=== PATIENT | female | born 1990 | race Caucasian/White ===

== ENCOUNTER 2024-11-21 16:13 | Inpatient (IN) | payer SELFPAY ==
[2024-11-21] VITALS (9 sets, daily range): BP systolic 128–150; BP diastolic 72–118; PULSE 107–118; RESP 19–26; TEMP 36.9; O2SAT 93–96
--- NOTE | ~2024-11-21 | CT_ITS ---
EXAMINATION: CTA chest PE protocol DATE: 11/21/2024 21:20 CDT INDICATION: Shortness of breath, recent asthma diagnosis without improvement from inhalers. Pulmonary embolus suspected clinically TECHNIQUE: Computed tomographic angiography (CTA) of the chest was performed with 100 mL Omnipaque-35 0 intravenous contrast. The dose-length product was 974.78 mGy-cm. Maximum intensity projection 3D-re constructions of the aorta and other arteries were constructed by the technologist on a separate work station. COMPARISON: 10/18/2012 FINDINGS/OBSERVATIONS: PULMONARY ARTERIES: No filling defect is identified within the main or proximal pulmonary artery. The main pulmonary artery is not enlarged. THORACIC AORTA: No aneurysmal dilatation or dissection is present. The great vessels are intact LUNGS: Redemonstration of bulky calcifications within the anterior segment of the left upper lobe, un changed from 2013 likely representing prior granulomatous disease. Cylindrical bronchiectasis is detected bilaterally, more than one would expect in a patient of this a ge. Evaluation for the presence or absence of pulmonary nodules is limited secondary to respiratory m otion artifact. 4 mm intraparenchymal lymph node is identified, also unchanged from 2013 examination. MEDIASTINUM: No morphologically suspicious or pathologically enlarged lymph nodes are identified with in the mediastinum or bilateral axilla. BONES OF THE CHEST: No acute fracture. No significant degenerative disease. No lytic or blastic lesions. HEART: The heart is of normal size, without pericardial effusion. IMPRESSION: No pulmonary embolus. No thoracic aortic dissection. Findings suggesting prior granulomatous disease. Cylindrical bronchiectasis. Otherwise stable CTA of the chest dating back to 10/18/2022. Reviewed, dictated and finalized at location A.
--- NOTE | ~2024-11-21 | XR_ITS ---
CHEST RADIOGRAPH, PA AND LATERAL CLINICAL HISTORY: sob . COMPARISON: None available TECHNIQUE: PA and lateral views of the chest. FINDINGS The cardiomediastinal silhouette is unremarkable. The lungs are clear. Visualized osseous structures and soft tissues are unremarkable. IMPRESSION: No focal infiltrate or effusion. Reviewed, dictated and finalized at location A.
--- OUTSIDE RECORDS SUMMARY | 2024-11-21 16:17 | XMS_ITS | Clinical Summary ---
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
--- OUTSIDE RECORDS SUMMARY | 2024-11-21 16:17 | XMS_ITS | CONTINUITY OF CARE DOCUMENT ---
Author Name mahsa bragg Address Unknown Organization [facility] Address [address] [place] [address] Phone [phone] Care Team Providers Care Claim Taker Name Role Phone René Bolton MD Unavailable René Bolton MD Unavailable [phone] INSURANCE PROVIDERS Payer name Policy type / Coverage type [place] red republican ID [id number] PAY
--- OUTSIDE RECORDS SUMMARY | 2024-11-21 16:17 | XMS_ITS | Clinical Summary ---
Author Organization [facility] Address [address] [place] [address] Care Team Providers Care Information Assistant Name Role Phone Unavailable Primary Care Provider Unavailabl e Source Comments [facility],non-owned Affiliates and Associated Physician Practices is amultiple site organization consisting of ambulatory clinics and hospital sitesin [place], [place], [place] and [place]. This disclosure is being madepursuant to the Care Everywhere program and may not contain all information available regarding this patient. Last updated 18.[facility] Allergies No known active allergies Medications * Be aware that medications may not be up to date on this document. Alwaysverify current medications with the patient. 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 03/27/2018 Overview (06/12/2018): Incomplete anatomical screen for twin B Obesity affecting , antepartum 03/27/20 18 Family History Medical History Relation Name Comments Cancer - Breast Maternal Grandmother Cancer - Breast Mother Katharina Relation Name Status Comments Brother Alive Father Tae Alive Maternal Grandfather Maternal Grandmother Alive Mother Katharina (Age 35) Paternal Grandfather Alive Paternal Grandmother Alive Social History Tobacco Use Types Packs/Day Years Used Date Smoking Tobacco: Never Smokeless Tobacco: Never Alcohol Use Standard Drinks/Week Comments No 0 (1 standard drink = 0.6 oz pur e alcohol) Sex and Gender Information Value Date Recorded Sex Assigned at Not on file Gender Identity Not on file Sexual Orientation Not on file Last Filed Vital Signs Vital Sign Reading Time Taken Comments Blood Pressure 113/67 05/02/2018 4:02 PM CDT Pulse 87 05/02/2018 4:02 PM CDT Temperature - - Respiratory Rate - - Oxygen Saturation - - Inhaled Oxygen Concentration - - Weight 116.1 kg (256 lb) 05/02/2018 4:02 PM CDT Height 139.7 cm (4' 7 ) 05/02/2018 4:02 PM CDT Body Mass Index 59.5 05/02/2018 4:02 PM CDT Plan of Treatment Health Maintenance Due Date Last Done Comments PAP SMEAR 1990 HIV SCREENING 2006 HEPATITIS C SCREENING 01/02/2009 DTAP/TDAP/TD VACCINES (1 - Tdap) 2010 HEPATITIS B VACCINE (1 of 3 - 19+ 3-dose series) 2010 COVID-19 VACCINE (1 - 2023-2 5 season) 2024 INFLUENZA VACCINE (#1) 2024 DEPRESSION SCREENING 09/04/2024 ZOSTER VACCINE (1 of 2) 2041 HIB VACCINE Aged Out No longer eligi ble based on patient's age to complete this topic HPV VACCINE Aged Out No longer eligi ble based on patient's age to complete this topic MENINGOCOCCAL (Group B) VACC INE SHARED DECISION-MAKING Aged Out No longer eligibl e based on patient's age to complete this topic MENINGOCOCCAL GROUPS A/C/Y/W VACCINE Aged Out No longer eligible b ased on patient's age to complete this topic PNEUMOCOCCAL VACCINE Aged Out No long er eligible based on patient's age to complete this topic Fabiana Juárez Personal/Family Self [id number] [address]
--- NOTE | 2024-11-21 16:39 | ED_ITS ---
HPI - SOB/Dyspnea General Chief Complaint: Asthma <Eden Brooke PA-C - Last Filed: 11/21/24 16:47> Stated Complaint: Shortness of breath <DARIUS Riley Last Filed: 11/21/24 16:47> Time Seen by Provider: 11/21/24 16:39 <DARIUS Riley Last Filed: 11/21/24 16:47> Focused HPI: Patient is a 34 y/o female who presents to the ED with c/o SOB. Patient reports she has been sick for the past 2 months with cough, congestion, SOB. Reports having worsening SOB over the past few days, worse with exertion. States she was diagnosed with asthma in October and Rx'd an inhaler. Has been using this and nebulizer Tx w/o improvement. Has also been on several rounds of steroids and antibiotics with temporary improvement. Reports intermittent chest tightness, dizziness. Denies fevers. GENERAL: Well-appearing, morbidly obese with BMI of 41.2, and in no acute distress. HEAD: Normocephalic, atraumatic. CHEST: Decreased lung sounds throughout, very tight, diffuse expiratory wheezing, tachypnea, conversational dyspnea. HEART: Regular rate and rhythm.? NEURO: ?Alert and oriented x3. Patient screened in triage and initial orders placed.? ?Additional care and disposition to be based upon?diagnostic testing and treatment. <Eden Brooke PA-C - Last Filed: 11/21/24 16:47> Source: patient <DARIUS Riley Last Filed: 11/21/24 16:47> Mode of arrival: ambulatory <DARIUS Rliey Last Filed: 11/21/24 16:47> Limitations: no limitations <DARIUS Riley Last Filed: 11/21/24 16:47> History of Present Illness HPI Narrative: I agree with the assessment and documentation of Eden Brooke PA-C. <Natalie Bullard APRN - Last Filed: 11/22/24 01:18> Related Data Allergies/Adverse Reactions: Allergies Allergy/AdvReac Type Severity Reaction Status Date / Time No Known Allergies Allergy Verified 11/21/24 16:15 <Eden Brooke PA-C - Last Filed: 11/21/24 16:47> Review of Systems 2 Review of Systems: All systems reviewed & are unremarkable except as noted in HPI and below <Natalie Bullard APRN - Last Filed: 11/22/24 01:18> Exam 2 Narrative: GENERAL: Ill-appearing, well-nourished, non-toxic, in acute distress. HEAD: Normocephalic, atraumatic. NECK: Supple. No adenopathy, no masses. RESPIRATORY: Airway patent, respirations labored. Tight and wheezing upon auscultation bilaterally, no rales, rhonchi. Tachypnea CARDIOVASCULAR: Tachycardia without murmurs, rubs, or gallops. Peripheral pulses 2+ and equal bilaterally. ABDOMINAL: Soft, nontender, nondistended, no hepatosplenomegaly. Normoactive BS. MUSCULOSKELETAL: Moves all extremities. Strength/ROM intact without gross deformities. SKIN: Warm, dry, normal color. No rashes. NEURO: A&O X3. Speech clear. Cranial nerves II-XII intact. No ataxic movements. PSYCHIATRIC: Appropriate mood and affect. Normal interaction. <Natalie Bullard, KYARA - Last Filed: 11/22/24 01:18> Course Vital Signs Vital signs: Vital Signs Temperature 36.9 C 11/21/24 16:34 Pulse Rate 118 H 11/21/24 16:34 Respiratory Rate 24 H 11/21/24 16:34 Blood Pressure 137/97 H 11/21/24 16:34 Pulse Oximetry 95 11/21/24 16:34 Oxygen Delivery Room Air 11/21/24 16:34 Temperature 36.9 C 11/21/24 16:34 Pulse Rate 112 H 11/21/24 23:53 Respiratory Rate 19 11/21/24 23:53 Blood Pressure 137/118 H 11/21/24 23:53 Pulse Oximetry 95 11/21/24 23:53 Oxygen Delivery Room Air 11/21/24 23:19 Fraction of Inspired Oxygen 21 11/21/24 23:19 <Eden Brooke PA-C - Last Filed: 11/21/24 16:47> Vital Signs Temperature 36.9 C 11/21/24 16:34 Pulse Rate 118 H 11/21/24 16:34 Respiratory Rate 24 H 11/21/24 16:34 Blood Pressure 137/97 H 11/21/24 16:34 Pulse Oximetry 95 11/21/24 16:34 Oxygen Delivery Room Air 11/21/24 16:34 Temperature 36.9 C 11/21/24 16:34 Pulse Rate 112 H 11/21/24 23:53 Respiratory Rate 19 11/21/24 23:53 Blood Pressure 137/118 H 11/21/24 23:53 Pulse Oximetry 95 11/21/24 23:53 Oxygen Delivery Room Air 11/21/24 23:19 Fraction of Inspired Oxygen 21 11/21/24 23:19 <Natalie Bullard APRN - Last Filed: 11/22/24 01:18> MDM - SOB/Dyspnea MDM Narrative Medical decision making narrative: MSE by PATY in triage. <Eden Brooke PA-C - Last Filed: 11/21/24 16:47> MSE by PATY in triage. Patient is a 34 y/o female who presents to the ED with c/o SOB. Patient reports she has been sick for the past 2 months with cough, congestion, SOB. Reports having worsening SOB over the past few days, worse with exertion. States she was diagnosed with asthma in October and Rx'd an inhaler. Has been using this and nebulizer Tx w/o improvement. Has also been on several rounds of steroids and antibiotics with temporary improvement. Reports intermittent chest tightness, dizziness. Denies fevers. Labs Ordered: CBC, CMP, INR, APTT, troponin, COVID/flu/RSV Imaging Ordered: Chest x-ray, CTA chest PE Medications Ordered: Solu-Medrol 125 mg IV Results: Pt's CT scan indicates No pulmonary embolus.No thoracic aortic dissection.Findings suggesting prior granulomatous disease. Cylindrical bronchiectasis.Otherwise stable CTA of the chest dating back to 10/18/2022. Diagnosis: intrinsic lung disease, lung infection, shortness of breath, wheezing Consults: pulmonology (inpatient) Patient Education/Shared MDM: 0100- Pt was able to maintain her oxygen saturation during ambulation, but her heart rate went up to the 130s. It was advised pt be admitted to the hospital. Pt verbalized understanding and is in agreement with plan. 0100-Spoke with Nichol, hospitalist, who was in agreement with plan for admission. <Natalie Bullard APRN - Last Filed: 11/22/24 01:18> Differential Diagnosis Differential diagnosis: Likely acute exacerbation of chronic obstructive airways disease, community acquired pneumonia and asthma with exacerbation <Natalie Bullard APRN - Last Filed: 11/22/24 01:18> Lab Data Attestation: I reviewed the patient's lab results. <Natalie Bullard, KYARA - Last Filed: 11/22/24 01:18> Result diagrams: 11/21/24 19:47 11/21/24 19:47 <Eden Brooke PA-C - Last Filed: 11/21/24 16:47> Labs: Lab Results 11/21/24 11/21/24 11/21/24 Range/Units 19:46 19:47 21:03 WBC 11.1 H (4.5-10.0) K/mm3 RBC 4.84 (4.2-5.4) M/mm3 Hgb 13.9 (12.0-15.0) g/dL Hct 43.0 (37.0-47.0) % MCV 88.8 (80-100) fl MCH 28.7 (26-34) pg MCHC 32.3 (32-36) g/dl RDW 13.1 (11.5-14.5) % Plt Count 309 (150-375) k/mm3 MPV 10.3 (7.4-10.4) fl Immature Gran % (Auto) 0.2 (0-0.5) % Neut % (Auto) 63.1 (45.5-73.1) % Lymph % (Auto) 21.8 (18.3-44.2) % Canadian % (Auto) 5.0 (2.6-8.5) % Eos % (Auto) 9.2 H (0-4.4) % Baso % (Auto) 0.7 (0.2-1.2) % Lymph # (Auto) 2.42 (0.9-3.2) K/mm3 Canadian # (Auto) 0.6 (0.1-0.6) K/mm3 Eos # (Auto) 1.0 H (0-0.3) K/mm3 Baso # (Auto) 0.1 (0.0-0.1) K/mm3 Abs Immat Gran (auto) 0.02 (0.00-0.031) K/mm3 Absolute Neuts (auto) 7.0 H (1.3-6.7) K/mm3 Absolute Nucleated RBC 0.000 (0.0-0.012) K/mm3 Nucleated RBC % 0.0 (0.0-0.2) % PT 13.3 (11.1-14.7) Seconds INR 1.0 APTT 29.5 (22.3-36.8) Seconds Sodium 140 (137-145) mmol/L Potassium 4.2 (3.4-5.0) mmol/L Chloride 102 (98-107) mmol/L Carbon Dioxide 26 (22-30) mmol/L Anion Gap 12 (4-12) mmol/L BUN 8 (7-17) mg/dL Creatinine 0.86 (0.7-1.0) mg/dL Estim Creat Clear Calc 98 ml/min Estimated GFR > 60 (59 - ) Glucose 104 (65-110) mg/dL Lactic Acid (0.7-2.0) mmol/L Calcium 9.8 (8.4-10.2) mg/dL Total Bilirubin 0.9 (0.2-1.3) mg/dL AST 23 (14-36) U/L ALT 31 (6-35) U/L Alkaline Phosphatase 92 (38-126) U/L Troponin I < 0.012 (0.000-0.034) ng/mL C-Reactive Protein 1.5 H (<1.0) mg/dL Total Protein 8.0 (6.3-8.2) g/dL Albumin 4.9 (3.5-5.1) g/dL POC Urine HCG, Qual Negative (Negative) Influenza A (RT-PCR) Negative (Negative) Influenza B (RT-PCR) Negative (Negative) RSV (RT-PCR) Negative (Negative) SARS-CoV-2 RNA (RT-PCR) Negative (Negative) 11/21/24 Range/Units 23:48 WBC (4.5-10.0) K/mm3 RBC (4.2-5.4) M/mm3 Hgb (12.0-15.0) g/dL Hct (37.0-47.0) % MCV (80-100) fl MCH (26-34) pg MCHC (32-36) g/dl RDW (11.5-14.5) % Plt Count (150-375) k/mm3 MPV (7.4-10.4) fl Immature Gran % (Auto) (0-0.5) % Neut % (Auto) (45.5-73.1) % Lymph % (Auto) (18.3-44.2) % Canadian % (Auto) (2.6-8.5) % Eos % (Auto) (0-4.4) % Baso % (Auto) (0.2-1.2) % Lymph # (Auto) (0.9-3.2) K/mm3 Canadian # (Auto) (0.1-0.6) K/mm3 Eos # (Auto) (0-0.3) K/mm3 Baso # (Auto) (0.0-0.1) K/mm3 Abs Immat Gran (auto) (0.00-0.031) K/mm3 Absolute Neuts (auto) (1.3-6.7) K/mm3 Absolute Nucleated RBC (0.0-0.012) K/mm3 Nucleated RBC % (0.0-0.2) % PT (11.1-14.7) Seconds INR APTT (22.3-36.8) Seconds Sodium (137-145) mmol/L Potassium (3.4-5.0) mmol/L Chloride (98-107) mmol/L Carbon Dioxide (22-30) mmol/L Anion Gap (4-12) mmol/L BUN (7-17) mg/dL Creatinine (0.7-1.0) mg/dL Estim Creat Clear Calc ml/min Estimated GFR (59 - ) Glucose (65-110) mg/dL Lactic Acid 1.2 (0.7-2.0) mmol/L Calcium (8.4-10.2) mg/dL Total Bilirubin (0.2-1.3) mg/dL AST (14-36) U/L ALT (6-35) U/L Alkaline Phosphatase (38-126) U/L Troponin I (0.000-0.034) ng/mL C-Reactive Protein (<1.0) mg/dL Total Protein (6.3-8.2) g/dL Albumin (3.5-5.1) g/dL POC Urine HCG, Qual (Negative) Influenza A (RT-PCR) (Negative) Influenza B (RT-PCR) (Negative) RSV (RT-PCR) (Negative) SARS-CoV-2 RNA (RT-PCR) (Negative) <Eden Brooke PA-C - Last Filed: 11/21/24 16:47> Lab Results 11/21/24 11/21/24 11/21/24 Range/Units 19:46 19:47 21:03 WBC 11.1 H (4.5-10.0) K/mm3 RBC 4.84 (4.2-5.4) M/mm3 Hgb 13.9 (12.0-15.0) g/dL Hct 43.0 (37.0-47.0) % MCV 88.8 (80-100) fl MCH 28.7 (26-34) pg MCHC 32.3 (32-36) g/dl RDW 13.1 (11.5-14.5) % Plt Count 309 (150-375) k/mm3 MPV 10.3 (7.4-10.4) fl Immature Gran % (Auto) 0.2 (0-0.5) % Neut % (Auto) 63.1 (45.5-73.1) % Lymph % (Auto) 21.8 (18.3-44.2) % Canadian % (Auto) 5.0 (2.6-8.5) % Eos % (Auto) 9.2 H (0-4.4) % Baso % (Auto) 0.7 (0.2-1.2) % Lymph # (Auto) 2.42 (0.9-3.2) K/mm3 Canadian # (Auto) 0.6 (0.1-0.6) K/mm3 Eos # (Auto) 1.0 H (0-0.3) K/mm3 Baso # (Auto) 0.1 (0.0-0.1) K/mm3 Abs Immat Gran (auto) 0.02 (0.00-0.031) K/mm3 Absolute Neuts (auto) 7.0 H (1.3-6.7) K/mm3 Absolute Nucleated RBC 0.000 (0.0-0.012) K/mm3 Nucleated RBC % 0.0 (0.0-0.2) % PT 13.3 (11.1-14.7) Seconds INR 1.0 APTT 29.5 (22.3-36.8) Seconds Sodium 140 (137-145) mmol/L Potassium 4.2 (3.4-5.0) mmol/L Chloride 102 (98-107) mmol/L Carbon Dioxide 26 (22-30) mmol/L Anion Gap 12 (4-12) mmol/L BUN 8 (7-17) mg/dL Creatinine 0.86 (0.7-1.0) mg/dL Estim Creat Clear Calc 98 ml/min Estimated GFR > 60 (59 - ) Glucose 104 (65-110) mg/dL Lactic Acid (0.7-2.0) mmol/L Calcium 9.8 (8.4-10.2) mg/dL Total Bilirubin 0.9 (0.2-1.3) mg/dL AST 23 (14-36) U/L ALT 31 (6-35) U/L Alkaline Phosphatase 92 (38-126) U/L Troponin I < 0.012 (0.000-0.034) ng/mL C-Reactive Protein 1.5 H (<1.0) mg/dL Total Protein 8.0 (6.3-8.2) g/dL Albumin 4.9 (3.5-5.1) g/dL POC Urine HCG, Qual Negative (Negative) Influenza A (RT-PCR) Negative (Negative) Influenza B (RT-PCR) Negative (Negative) RSV (RT-PCR) Negative (Negative) SARS-CoV-2 RNA (RT-PCR) Negative (Negative) 11/21/24 Range/Units 23:48 WBC (4.5-10.0) K/mm3 RBC (4.2-5.4) M/mm3 Hgb (12.0-15.0) g/dL Hct (37.0-47.0) % MCV (80-100) fl MCH (26-34) pg MCHC (32-36) g/dl RDW (11.5-14.5) % Plt Count (150-375) k/mm3 MPV (7.4-10.4) fl Immature Gran % (Auto) (0-0.5) % Neut % (Auto) (45.5-73.1) % Lymph % (Auto) (18.3-44.2) % Canadian % (Auto) (2.6-8.5) % Eos % (Auto) (0-4.4) % Baso % (Auto) (0.2-1.2) % Lymph # (Auto) (0.9-3.2) K/mm3 Canadian # (Auto) (0.1-0.6) K/mm3 Eos # (Auto) (0-0.3) K/mm3 Baso # (Auto) (0.0-0.1) K/mm3 Abs Immat Gran (auto) (0.00-0.031) K/mm3 Absolute Neuts (auto) (1.3-6.7) K/mm3 Absolute Nucleated RBC (0.0-0.012) K/mm3 Nucleated RBC % (0.0-0.2) % PT (11.1-14.7) Seconds INR APTT (22.3-36.8) Seconds Sodium (137-145) mmol/L Potassium (3.4-5.0) mmol/L Chloride (98-107) mmol/L Carbon Dioxide (22-30) mmol/L Anion Gap (4-12) mmol/L BUN (7-17) mg/dL Creatinine (0.7-1.0) mg/dL Estim Creat Clear Calc ml/min Estimated GFR (59 - ) Glucose (65-110) mg/dL Lactic Acid 1.2 (0.7-2.0) mmol/L Calcium (8.4-10.2) mg/dL Total Bilirubin (0.2-1.3) mg/dL AST (14-36) U/L ALT (6-35) U/L Alkaline Phosphatase (38-126) U/L Troponin I (0.000-0.034) ng/mL C-Reactive Protein (<1.0) mg/dL Total Protein (6.3-8.2) g/dL Albumin (3.5-5.1) g/dL POC Urine HCG, Qual (Negative) Influenza A (RT-PCR) (Negative) Influenza B (RT-PCR) (Negative) RSV (RT-PCR) (Negative) SARS-CoV-2 RNA (RT-PCR) (Negative) <Natalie Bullard APRN - Last Filed: 11/22/24 01:18> Discharge Plan Discharge Patient Language: Malagasy <Eden Brooke PA-C - Last Filed: 11/21/24 16:47> Follow-up/Referrals: PHYSICIAN,FISH PROCESSING SUPERVISOR [Primary Care Provider] - <Eden Brooke PA-C - Last Filed: 11/21/24 16:47>
--- NOTE | 2024-11-21 16:40 | ECG_ITS ---
Test Date: 2024-11-21 19:42:16 Measurements Intervals [place] Rate: 112 P: 80 CO: 177 QRS: 41 QRSD: 70 T: 57 QT: 299 QTc: 408 Interpretive Statements SINUS TACHYCARDIA No previous ECG available for comparison Electronically Signed On 11-22-2024 18:26:02 CDT by Racheal Foreman M.D.
[2024-11-21] MEDS: methylPREDNISolone SOD SUCC 125 MG VIAL IV PUSH (19:41)
--- OUTSIDE RECORDS SUMMARY | 2024-11-21 19:47 | XMS_ITS | CONTINUITY OF CARE DOCUMENT ---
Author Name mahsa bragg Address Unknown Organization [facility] Address [address] [place] [address] Phone [phone] Care Team Providers Care Pricing Lead Name Role Phone René Bolton MD Unavailable [phone] René Bolton MD Unavailable [phone] INSURANCE PROVIDERS Payer name Policy type / Coverage type [place] red democrat ID [id number] PAY
--- OUTSIDE RECORDS SUMMARY | 2024-11-21 19:47 | XMS_ITS | Clinical Summary ---
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
--- OUTSIDE RECORDS SUMMARY | 2024-11-21 19:47 | XMS_ITS | Clinical Summary ---
Author Organization [facility] Address [address] [place] [address] Care Team Providers Care Environmental Management Specialist Name Role Phone Unavailable Primary Care Provider Unavailabl e Source Comments [facility],non-owned Affiliates and Associated Physician Practices is amultiple site organization consisting of ambulatory clinics and hospital sitesin [place] and [place]. This disclosure is being madepursuant to the Care Everywhere program and may not contain all information available regarding this patient. Last updated 18.[facility] Allergies No known active allergies Medications * [...] this topic Fabiana Juárez Personal/Family Self [id number] [address]
[2024-11-21 20:05] LABS: Alanine Aminotransferase 31 U/L (6-35); Albumin Level 4.9 g/dL (3.5-5.1); Alkaline Phosphatase 92 U/L (38-126); Anion Gap 12 mmol/L (4-12); Aspartate Amino Transferase 23 U/L (14-36); Basophils Absolute Auto 0.1 K/mm3 (0.0-0.1); Basophils Percent Auto 0.7 % (0.2-1.2); Bilirubin,Total 0.9 mg/dL (0.2-1.3); Blood Urea Nitrogen 8 mg/dL (7-17); Calcium 9.8 mg/dL (8.4-10.2); Carbon Dioxide 26 mmol/L (22-30); Chloride 102 mmol/L (98-107); Eosinophils Percent Auto 9.2 % (0-4.4); Estimated CRCL calculation 98 ml/min; Estimated Glomerular Filt Rate > 60; Glucose 104 mg/dL (65-110); Hemoglobin 13.9 g/dL (12.0-15.0); Immature Granulocyte Absolute 0.02 K/mm3 (0.00-0.031); Immature Granulocyte Percent A 0.2 % (0-0.5); Lymphocytes Absolute Auto 2.42 K/mm3 (0.9-3.2); Lymphocytes Percent Auto 21.8 % (18.3-44.2); Mean Corpuscular HGB Conc 32.3 g/dl (32-36); Mean Corpuscular Hemoglobin 28.7 pg (26-34); Mean Corpuscular Volume 88.8 fl (80-100); Mean Platelet Volume 10.3 fl (7.4-10.4); Monocytes Absolute Auto 0.6 K/mm3 (0.1-0.6); Neutrophils Percent Auto 63.1 % (45.5-73.1); Platelet Count Result 309 k/mm3 (150-375); Potassium 4.2 mmol/L (3.4-5.0); Red Blood Count 4.84 M/mm3 (4.2-5.4); Red Cell Distribution Width 13.1 % (11.5-14.5); Sodium 140 mmol/L (137-145); White Blood Count 11.1 K/mm3 (4.5-10.0)
[2024-11-21 20:12] LABS: Partial Thromboplastin Time 29.5 Seconds (22.3-36.8); Prothrombin Time 13.3 Seconds (11.1-14.7)
[2024-11-21 20:17] LABS: Troponin I < 0.012 ng/mL (0.000-0.034)
[2024-11-21 20:34] LABS: Influenza A QL RT-PCR Negative (Negative); Influenza B QL RT-PCR Negative (Negative); RSV RNA, RT-PCR Negative (Negative); SARS-CoV-2 RNA PCR Negative (Negative)
[2024-11-21 21:04] LABS: BEDSIDEPREGUCG Negative (Negative)
[2024-11-21] MEDS: ACETAMINOPHEN 500 MG TABLET 1000 MG PO (22:23)
[2024-11-21] MEDS: IPRATROPIUM 0.5 MG/ALBUTEROL SULFATE 2.5 MG AMPUL.NEB 3 ML INHALATION (23:11)
[2024-11-21] MEDS: SODIUM CHLORIDE 0.9% IV 1,000 ML 999 ML IV CONT (23:51)
[2024-11-21 23:53] LABS: CRP 1.5 mg/dL (<1.0)
[2024-11-22] VITALS (18 sets, daily range): BP systolic 140–148; BP diastolic 80–100; PULSE 89–123; RESP 20–26; TEMP 36.5–36.8; O2SAT 89–97; BMI 45.0
[2024-11-22 00:05] LABS: Lactic Acid Reflex 1.2 mmol/L (0.7-2.0)
[2024-11-22] MEDS: AZITHROMYCIN 500 MG/NS 250 ML 500 MG/250 ML BAG 250 MG IVPB ×2 (00:20→22:06)
--- NOTE | 2024-11-22 01:05 | PM.IMHP ---
H&P: HPI History of Present Illness Date/Time: 11/22/24 01:30 Chief Complaint: Shortness of breath. Narrative: This is a very pleasant 34-year-old female with a 5 year smoking history who has been vaping nicotine products for the last year or so who presented to the emergency department via private vehicle with complaints of shortness of breath. The patient provides the following history. She has had recurrent issues with bronchitis since July 2024 and she was recently hospitalized at [place] for couple of days with the same. She was discharged with prednisone for 5 days which seemed to help her symptoms tremendously. She was also given a budesonide nebulizer which she does not like as she feels as though it makes her wheeze even more. About a week after finishing the steroids, she again developed a cough productive of yellow phlegm, significant wheezing, and progressive shortness of breath. She has been using her rescue inhaler which helps for a short period of time. With further questioning she does report having seasonal allergies with watery and itchy eyes for which she is taking Zyrtec and Flonase. She has no history of asthma and never had issues with that as a child and denies eczema. She denies secondhand smoke exposure. She and her family moved into a new home last fall and she has not noticed any evidence of mold, mildew, or standing water. She grew up in [place] and denies exposures to forearms and farm animals. She also denies dysphagia and concerns for aspiration. No fever, exertional chest pain, pleuritic pain, vomiting, diarrhea, lower extremity edema, calf pain, joint swelling, or rashes. In the ED: Vital signs on arrival include a temperature 90.4?, blood pressure 137/97, pulse 118, respiratory 24, SpO2 95% on room air. Labs were significant for WBC count of 11.1 with 9.2% eosinophiles and a CRP of 1.5. She was negative for influenza, RSV, and COVID. Chest CTA was negative for pulmonary embolus and dissection but did show findings suggestive of prior granulomatous disease and cylindrical bronchiectasis. She received a nebulizer treatment and methylprednisolone and she is being admitted in this setting for further treatment. Review of Systems Review of Systems: 12 systems were reviewed and are negative except for as per HPI. [facility] Past Medical History Medical History (Updated 11/22/24 @ 05:00 by Nichol Salas PA-C) Bipolar disorder Surgical History Surgical History (Updated 11/22/24 @ 04:57 by Nichol Salas PA-C) History of section x3 Family History Family History (Updated 11/22/24 @ 04:57 by Nichol Salas PA-C) Father Congestive heart failure Acute myocardial infarction Grandparent Diabetes mellitus Breast cancer Mother Breast cancer, Onset Age: 36 Social History Social History (Updated 11/22/24 @ 04:58 by Nichol Salas PA-C) Social History: Surrogate medical decision maker: bubba Nelson. Code status: Full code. Smoking status: Former smoker Tobacco type: e-cigarettes/vaping Alcohol intake: never Substance use: never Do You Feel Safe in your Home?: Yes Lack of Transportation: No Lack of Food: Never True Current Housing: I Have Housing Concerned About Future Housing: No Difficulty Paying Gas/Electric Bills: No Difficulty Paying for Meds: No Currently Unemployed: No Education: High School Diploma/GED Difficulty w/ Childcare or Family Care: No Additional living arrangements comments: Lives with bubba and 3 children in [place]. Additional occupation/education comments: [employer]. Spiritual care concerns: No Meds Home Medications and Allergies Home Medications ?Medication ?Instructions ?Recorded ?Confirmed ?Type albuterol 90 mcg/actuation aerosol 90 mcg inhalation Q4H PRN 11/22/24 11/22/24 History inhaler shortness of breath or wheezing budesonide 0.5 mg/2 mL suspension 0.5 mg inhalation Q12H 11/22/24 11/22/24 History for nebulization Allergies Allergy/AdvReac Type Severity Reaction Status Date / Time No Known Allergies Allergy Verified 11/21/24 16:15 Vital Signs Vital Signs - 24 hr 11/21/24 16:34 11/21/24 19:44 11/21/24 19:45 Temperature 98.4 F Pulse Rate 118 H 115 H Respiratory Rate 24 H 26 H Blood Pressure 137/97 H 149/97 H Pulse Oximetry 95 94 96 Oxygen Delivery Room Air Room Air Fraction of Inspired Oxygen 11/21/24 20:01 11/21/24 20:46 11/21/24 21:01 Temperature Pulse Rate 110 H 113 H 114 H Respiratory Rate 24 H 24 H 22 H Blood Pressure 128/95 H 150/106 H 138/72 Pulse Oximetry 94 94 93 Oxygen Delivery Fraction of Inspired Oxygen 11/21/24 23:11 11/21/24 23:19 11/21/24 23:53 Temperature Pulse Rate 107 H 112 H Respiratory Rate 20 19 Blood Pressure 137/118 H Pulse Oximetry 95 95 Oxygen Delivery Room Air Fraction of Inspired Oxygen 21 Exam Narrative: General: Mildly ill-appearing female sitting up in bed in no acute distress. Weight: 119 kg. BMI: 45.0. HEENT: Normocephalic, atraumatic. PERRL, EOMI. Sclera anicteric. Conjunctiva mildly injected. Moist mucous membranes. Neck: Supple. No stridor. Respiratory: Respirations are nonlabored and she is speaking full sentences. Lung sounds are a bit coarse with diffuse wheezing. Cardiovascular: Regular rate and rhythm with S1-S2. Tachycardic with ambulation. Gastrointestinal: Abdomen is soft, nontender, and nondistended with positive bowel sounds. Skin: Warm and dry. No rash or lesions on limited exam. Extremities: No cyanosis, clubbing, or significant edema. Radial and pedal pulses intact. No palpable knots or cords. Neurological: Alert. Cranial nerves 2-12 are grossly intact. No gross focal deficits to casual conversation. Psychiatric: Pleasant and cooperative with normal mood and affect. Judgment and insight intact. H&P: Results Labs Labs: Short CBC 11/21/24 Range/Units 19:47 WBC 11.1 H (4.5-10.0) K/mm3 Hgb 13.9 (12.0-15.0) g/dL Hct 43.0 (37.0-47.0) % Plt Count 309 (150-375) k/mm3 [facility] 11/21/24 19:47 Sodium 140 Potassium 4.2 Chloride 102 Carbon Dioxide 26 BUN 8 Creatinine 0.86 Glucose 104 Calcium 9.8 Cardiac Enzymes 11/21/24 Range/Units 19:47 Troponin I < 0.012 (0.000-0.034) ng/mL Liver Function 11/21/24 Range/Units 19:47 Total Bilirubin 0.9 (0.2-1.3) mg/dL AST 23 (14-36) U/L ALT 31 (6-35) U/L Alkaline Phosphatase 92 (38-126) U/L Albumin 4.9 (3.5-5.1) g/dL Impressions Chest X-Ray 11/21/24 17:12 IMPRESSION: No focal infiltrate or effusion. Chest CTA 11/21/24 21:19 IMPRESSION: No pulmonary embolus. No thoracic aortic dissection. Findings suggesting prior granulomatous disease. Cylindrical bronchiectasis. Otherwise stable CTA of the chest dating back to 10/18/2022. Assessment and Plan Assessment and plan (1) Recurrent bronchospasm: Code(s): J98.09 - Other diseases of bronchus, not elsewhere classified Status: Acute (2) Cylindrical bronchiectasis: Code(s): J47.9 - Bronchiectasis, uncomplicated Status: Acute Plan The patient presented to the emergency department for evaluation of shortness of breath and cough which has been a recurrent issue since last fall as detailed in HPI. Labs, imaging, EKG, and all reports were personally reviewed. Chest CT showed findings of cylindrical bronchiectasis of unclear etiology and she has been started on scheduled bronchodilators and methylprednisolone. Continue empiric antibiotics as well. Coronary and Mucinex ordered to help mobilize secretions. I will ask pulmonology to see her in consultation for further recommendations and workup. She reports that she stopped vaping about a month ago due to ongoing symptoms and she was encouraged to continue to stay way from vaping products. Her home medications will be reviewed and resumed as appropriate. Findings and treatment plan were discussed with the patient. Questions were solicited and answered to satisfaction. The patient's medical management will be taken over by the hospitalist team in a.m. Quality VTE Prophylaxis VTE prophylaxis: pharmacologic ordered The patient has been admitted under observation status. Hospitalist [facility] Advance Care Plan I have confirmed that the patient's Advanced Care Plan is present, code status is documented, or surrogate decision maker is listed in patient medical record.: Yes Medication Reconciliation I have utilized all available resources to obtain, update and review the patients current medications (includes all prescriptions, OTC, herbals, cannabis, and nutritional supplements).: Yes
--- NOTE | 2024-11-22 02:58 | ADMGEN ---
This patient, Fabiana Juárez, was admitted to Medical Room 261-01. Patient/family oriented to hospital policies and general routines including ID bracelet, bed and alarms, visiting hours, pain management, procedures, bathroom and other care routines, personal items, smoking policy, room service/diet, and visiting hours. Information on how to activate the Rapid Response Team has been discussed. Patient/Family are encouraged to report perceived risks to care and to ask questions if they do not understand what they are told or what they should do.
[2024-11-22] MEDS: SODIUM CHLORIDE 0.9% IV 1,000 ML 125 ML IV CONT (03:20)
[2024-11-22] MEDS: methylPREDNISolone SOD SUCC 125 MG VIAL 60 MG IV PUSH ×3 (05:08→17:34)
[2024-11-22 05:17] LABS: Basophils Percent Auto 0.1 % (0.2-1.2); Hematocrit 40.6 % (37.0-47.0); Hemoglobin 13.2 g/dL (12.0-15.0); Immature Granulocyte Absolute 0.02 K/mm3 (0.00-0.031); Immature Granulocyte Percent A 0.3 % (0-0.5); Lymphocytes Absolute Auto 0.58 K/mm3 (0.9-3.2); Lymphocytes Percent Auto 7.4 % (18.3-44.2); Mean Corpuscular HGB Conc 32.5 g/dl (32-36); Mean Corpuscular Hemoglobin 28.8 pg (26-34); Mean Corpuscular Volume 88.6 fl (80-100); Mean Platelet Volume 10.8 fl (7.4-10.4); Monocytes Absolute Auto 0.1 K/mm3 (0.1-0.6); Monocytes Percent Auto 0.9 % (2.6-8.5); Neutrophils Absolute Auto 7.1 K/mm3 (1.3-6.7); Neutrophils Percent Auto 91.3 % (45.5-73.1); Platelet Count Result 286 k/mm3 (150-375); Red Blood Count 4.58 M/mm3 (4.2-5.4); White Blood Count 7.8 K/mm3 (4.5-10.0)
[2024-11-22 05:24] LABS: Anion Gap 13 mmol/L (4-12); Blood Urea Nitrogen 11 mg/dL (7-17); Calcium 9.6 mg/dL (8.4-10.2); Carbon Dioxide 22 mmol/L (22-30); Chloride 104 mmol/L (98-107); Estimated CRCL calculation 119 ml/min; Estimated Glomerular Filt Rate > 60; Glucose 170 mg/dL (65-110); Potassium 4.3 mmol/L (3.4-5.0); Sodium 139 mmol/L (137-145)
[2024-11-22] MEDS: ACETAMINOPHEN 325 MG TABLET 650 MG PO (08:24)
[2024-11-22] MEDS: guaiFENesin 12 HR 600 MG TABCR 1200 MG PO ×2 (08:25→21:14)
[2024-11-22] MEDS: ENOXAPARIN 40 MG/0.4 ML SYRINGE SUB-Q ×2 (08:25→21:15)
--- NOTE | 2024-11-22 09:37 | PM.CNPUL ---
Assessment and Plan Assessment and plan (1) Shortness of breath: Code(s): R06.02 - Shortness of breath Status: Acute (2) Cylindrical bronchiectasis: Code(s): J47.9 - Bronchiectasis, uncomplicated Status: Acute (3) Eosinophils increased: Code(s): R89.8 - Other abnormal findings in specimens from other organs, systems and tissues Status: Acute Assessment and Plan: This 34-year-old female with a history of morbid obesity presented with recurrent episodes of shortness of breath and wheezing, which typically respond to bursts of oral steroids since last August following a viral infection. Her clinical history, combined with diagnostic studies, suggests a hyperreactive airway disease, most likely asthma, given the recurrent nature of her symptoms, history of nasal allergies, and elevated eosinophil levels. The mild cylindrical bronchiectasis observed on chest CT, along with elevated eosinophils, raises the possibility of other bronchospastic diseases such as allergic bronchopulmonary aspergillosis (ABPA). On physical examination, the patient continues to exhibit expiratory wheezing, although her clinical condition has improved with the current treatment regimen. Plan: I recommend discontinuing antibiotics while continuing short-acting bronchodilators and IV steroids as prescribed. Increase Lovenox to twice daily for enhanced DVT prophylaxis. We will proceed with further workup to investigate potential underlying ABPA. I will continue to follow the patient in collaboration with you. History of Present Illness History of Present Illness Consult date: 11/22/24 Chief complaint: Shortness of breath, wheezing Narrative: This 34-year-old female presented with shortness of breath and wheezing. She has a history of obesity and has smoked for about four years, with a recent history of vaping. She was in her usual state of health until late July of last year, when she contracted an influenza viral infection. Since then, she has experienced recurrent episodes of bronchitis, for which she has been evaluated at local urgent care centers and was most recently hospitalized at [place] with similar symptoms, including cough, wheezing, and shortness of breath. The patient has been treated with antibiotics and has undergone oral steroid bursts on three occasions, each lasting approximately 7 to 9 days. She reported significant improvement while on steroids; however, the symptoms would recur about 10 days after completing each regimen. She has no history of asthma but does have a history of nasal allergies, for which she uses [id number] sprays and antihistamines. During an evaluation in the emergency room, a CT pulmonary angiogram revealed some cylindrical bronchiectasis but no infiltrates. Currently, she is being treated with antibiotics, nebulized short-acting bronchodilators, and IV steroids. Since her admission to the hospital, her breathing has improved somewhat, although she continues to experience some wheezing. She has no other respiratory symptoms such as fever, chills, hemoptysis, chest pain, or lower extremity edema. A complete blood count showed elevated eosinophils at 9%, with an absolute count over 900. Serology testing was negative for common viral diseases. 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 Review of Systems Review of Systems: Patient reports no significant weight changes. She has had some nasal allergies with runny nose runny eyes for which she has been using Flonase and Zyrtec. She has no chest pain. She has no nausea vomiting diarrhea constipation abdominal pain. She has no orthopnea. She has no urinary complaints. She has no history of skin rashes. Patient sleeps well at night although at times she gets up in the morning feeling tired. She has no history of sleep apnea. His [facility] Past Medical History Medical History (Updated 11/22/24 @ 09:44 by Rashawn Portillo MD) Bipolar disorder Surgical History Surgical History (Updated 11/22/24 @ 04:57 by Nichol Salas PA-C) History of section x3 Family History Family History (Updated 11/22/24 @ 04:57 by Nichol Salas PA-C) Father Congestive heart failure Acute myocardial infarction Grandparent Diabetes mellitus Breast cancer Mother Breast cancer, Onset Age: 36 Social History Social History (Updated 11/22/24 @ 04:58 by Nichol Salas PA-C) Social History: Surrogate medical decision maker: bubba Nelson. Code status: Full code. Smoking status: Former smoker Tobacco type: e-cigarettes/vaping Alcohol intake: never Substance use: never Do You Feel Safe in your Home?: Yes Lack of Transportation: No Lack of Food: Never True Current Housing: I Have Housing Concerned About Future Housing: No Difficulty Paying Gas/Electric Bills: No Difficulty Paying for Meds: No Currently Unemployed: No Education: High School Diploma/GED Difficulty w/ Childcare or Family Care: No Additional living arrangements comments: Lives with bubba and 3 children in [place]. Additional occupation/education comments: [employer]. Spiritual care concerns: No Meds Home Medications and Allergies Home Medications ?Medication ?Instructions ?Recorded ?Confirmed ?Type albuterol 90 mcg/actuation aerosol 90 mcg inhalation Q4H PRN 11/22/24 11/22/24 History inhaler shortness of breath or wheezing budesonide 0.5 mg/2 mL suspension 0.5 mg inhalation Q12H 11/22/24 11/22/24 History for nebulization Allergies Allergy/AdvReac Type Severity Reaction Status Date / Time No Known Allergies Allergy Verified 11/21/24 16:15 Vital Signs Vital Signs - 24 hr 11/21/24 16:34 11/21/24 19:44 11/21/24 19:45 Temperature 36.9 C Pulse Rate 118 H 115 H Respiratory Rate 24 H 26 H Blood Pressure 137/97 H 149/97 H Pulse Oximetry 95 94 96 Oxygen Delivery Room Air Room Air Fraction of Inspired Oxygen 11/21/24 20:01 11/21/24 20:46 11/21/24 21:01 Temperature Pulse Rate 110 H 113 H 114 H Respiratory Rate 24 H 24 H 22 H Blood Pressure 128/95 H 150/106 H 138/72 Pulse Oximetry 94 94 93 Oxygen Delivery Fraction of Inspired Oxygen 11/21/24 23:11 11/21/24 23:19 11/21/24 23:53 Temperature Pulse Rate 107 H 112 H Respiratory Rate 20 19 Blood Pressure 137/118 H Pulse Oximetry 95 95 Oxygen Delivery Room Air Fraction of Inspired Oxygen 21 11/22/24 02:44 11/22/24 02:56 11/22/24 02:56 Temperature 36.5 C Pulse Rate 102 H 108 H Respiratory Rate 22 H Blood Pressure 148/100 H Pulse Oximetry 97 Oxygen Delivery Room Air Fraction of Inspired Oxygen 11/22/24 04:00 11/22/24 04:37 Temperature 36.5 C Pulse Rate 114 H 110 H Respiratory Rate 20 Blood Pressure 140/80 Pulse Oximetry 93 Oxygen Delivery Fraction of Inspired Oxygen Exam Narrative: GENERAL APPEARANCE: Well developed, well nourished, alert and cooperative, obese and appears to be in no acute distress while sitting up in bed and breathing room air SKIN: Inspection of the skin reveals no rashes, ulcerations or petechiae. HEENT: Sclerae anicteric and conjunctivae pink and moist. Extraocular movements were intact and pupils were equal, round, and reactive to light. The oral mucosa, hard and soft palate, tongue and posterior pharynx were normal. NECK: Supple. There was no thyroid enlargement, and no tenderness, or masses were felt. CHEST: Normal AP diameter and normal contour without any kyphoscoliosis. LUNGS: Moderate wheezing bilaterally CARDIAC: There was a regular rate and rhythm without any murmurs, gallops, rubs. ABDOMEN: Soft and nontender with normal bowel sounds. There was no organomegaly. LYMPH NODES: No lymphadenopathy was appreciated in the neck. EXTREMITIES: No cyanosis, clubbing or edema. NEUROLOGIC: Alert and oriented x 3. Normal affect. Results Laboratory Findings 11/22/24 04:37 11/22/24 04:37 ABG, PT/INR, D-dimer: PT/INR, D-dimer PT 13.3 Seconds (11.1-14.7) 11/21/24 19:47 INR 1.0 11/21/24 19:47 Abnormal lab findings: Abnormal Labs 11/21/24 11/21/24 11/22/24 19:46 19:47 04:37 WBC 11.1 H MPV 10.8 H Neut % (Auto) 91.3 H Lymph % (Auto) 7.4 L [place] % (Auto) 0.9 L Eos % (Auto) 9.2 H Baso % (Auto) 0.1 L Lymph # (Auto) 0.58 L Eos # (Auto) 1.0 H Absolute Neuts (auto) 7.0 H 7.1 H Anion Gap 13 H Glucose 170 H C-Reactive Protein 1.5 H
--- NOTE | 2024-11-22 09:45 | PCRCNOTE ---
Window of time for administration has passed. See next scheduled administration.
[2024-11-22 11:54] LABS: Iron 52 ug/dL (37-170)
[2024-11-22 12:06] LABS: Percent Iron Saturation 13 % (20-50)
--- NOTE | 2024-11-22 12:28 | P.PNIM_ITS ---
Progress Note: A&P Assessment and Plan (1) Recurrent bronchospasm: Code(s): J98.09 - Other diseases of bronchus, not elsewhere classified Status: Acute (2) Cylindrical bronchiectasis: Code(s): J47.9 - Bronchiectasis, uncomplicated Status: Acute Plan Recurrent bronchospasm continue bronchodilators Pulmonology evaluated for ABPA Aspergillus fumigatus IgG and IgE pending Pulmonology pending Bronchiectasis Continue antibiotics, mucinex and chest physiotherapy Pulm following DVT prophylaxis on Lovenox Subjective Date/time seen: 11/22/24 12:28 Interval history: Comfortable at bedside Pulmonology eval noted and Aspergillus IgG and IgE pending Review of Systems Review of Systems: 12 systems were reviewed and are negativ e except for as per HPI. Exam Narrative: General: Alert and in no acute distress HEENT: Normocephalic, atraumatic. PERRL, EOMI. Sclera anicteric. Conjunctiva mildly injected. Moist mucous membranes. Neck: Supple. No stridor. Respiratory: Respirations are nonlabored and she is speaking full sentences. Lung sounds are a bit coarse with diffuse wheezing. Cardiovascular: Regular rate and rhythm with S1-S2. Tachycardic with ambulation. Gastrointestinal: Abdomen is soft, nontender, and nondistended with positive bowel sounds. Skin: Warm and dry. No rash or lesions on limited exam. Extremities: No cyanosis, clubbing, or significant edema. Radial and pedal pulses intact. No palpable knots or cords. Neurological: Alert. Cranial nerves 2-12 are grossly intact. No gross focal deficits to casual conversation. Psychiatric: Pleasant and cooperative with normal mood and affect. Judgment and insight intact. Objective Data Vital Signs Vital Signs: Vital Signs - 24 hr 11/21/24 16:34 11/21/24 19:44 11/21/24 19:45 Temperature 98.4 F Pulse Rate 118 H 115 H Respiratory Rate 24 H 26 H Blood Pressure 137/97 H 149/97 H Pulse Oximetry 95 94 96 Oxygen Delivery Room Air Room Air Fraction of Inspired Oxygen 11/21/24 20:01 11/21/24 20:46 11/21/24 21:01 Temperature Pulse Rate 110 H 113 H 114 H Respiratory Rate 24 H 24 H 22 H Blood Pressure 128/95 H 150/106 H 138/72 Pulse Oximetry 94 94 93 Oxygen Delivery Fraction of Inspired Oxygen 11/21/24 23:11 11/21/24 23:19 11/21/24 23:53 Temperature Pulse Rate 107 H 112 H Respiratory Rate 20 19 Blood Pressure 137/118 H Pulse Oximetry 95 95 Oxygen Delivery Room Air Fraction of Inspired Oxygen 21 11/22/24 02:44 11/22/24 02:56 11/22/24 02:56 Temperature 97.7 F Pulse Rate 102 H 108 H Respiratory Rate 22 H Blood Pressure 148/100 H Pulse Oximetry 97 Oxygen Delivery Room Air Fraction of Inspired Oxygen 11/22/24 04:00 11/22/24 04:37 11/22/24 08:00 Temperature 97.7 F Pulse Rate 114 H 110 H 103 H Respiratory Rate 20 Blood Pressure 140/80 Pulse Oximetry 93 Oxygen Delivery Fraction of Inspired Oxygen 11/22/24 08:20 Temperature Pulse Rate Respiratory Rate Blood Pressure Pulse Oximetry 95 Oxygen Delivery Room Air Fraction of Inspired Oxygen Intake/Output Intake/Output: Intake & Output 11/19/24 11/20/24 11/21/24 11/22/24 23:59 23:59 23:59 23:59 Intake Total 1690 Balance 1690 Meds/Results Medications: Active Medications Generic Name Dose Route Start Last Admin Trade Name Freq PRN Reason Stop Dose Admin Acetaminophen 650 mg 11/22/24 08:10 11/22/24 08:24 Acetaminophen 325 Mg Tablet PO 650 mg Q6H PRN Administration Mild Pain (1-3) or Fever Albuterol/Ipratropium 3 ml 11/22/24 02:00 11/22/24 09:44 Ipratropium 0.5 Mg/Albuterol Sulfate 2.5 Mg Ampul.Neb 3 Ml INHALATION Not Given Q6HRT JUHI Enoxaparin Sodium 40 mg 11/22/24 21:00 Enoxaparin 40 Mg/0.4 Ml Syringe SUB-Q Q12HR JUHI Guaifenesin 1,200 mg 11/22/24 09:00 11/22/24 08:25 Guaifenesin 12 Hr 600 Mg Tabcr PO 1,200 mg Q12HR JUHI Administration Ceftriaxone Sodium 1 gm in 50 mls @ 100 mls/hr 11/22/24 22:00 Rocephin 1 Gm/Ns 50 Ml IVPB Q24H JUHI Azithromycin 500 mg in 250 mls @ 250 mls/hr 11/22/24 23:00 Zithromax IVPB Q24H JUHI Methylprednisolone Sodium Succinate 60 mg 11/22/24 06:00 11/22/24 05:08 Methylprednisolone Sod Succ 125 Mg Vial IV PUSH 60 mg Q6HR JUHI Administration Radiology Results: ITS Impressions Chest X-Ray 11/21/24 17:12 IMPRESSION: No focal infiltrate or effusion. Chest CTA 11/21/24 21:19 IMPRESSION: No pulmonary embolus. No thoracic aortic dissection. Findings suggesting prior granulomatous disease. Cylindrical bronchiectasis. Otherwise stable CTA of the chest dating back to 10/18/2022. Labs Labs: Laboratory Results - last 24 hr 11/21/24 11/21/24 11/21/24 19:46 19:47 21:03 WBC 11.1 H RBC 4.84 Hgb 13.9 Hct 43.0 MCV 88.8 MCH 28.7 MCHC 32.3 RDW 13.1 Plt Count 309 MPV 10.3 Immature Gran % (Auto) 0.2 Neut % (Auto) 63.1 Lymph % (Auto) 21.8 [place] % (Auto) 5.0 Eos % (Auto) 9.2 H Baso % (Auto) 0.7 Lymph # (Auto) 2.42 [place] # (Auto) 0.6 Eos # (Auto) 1.0 H Baso # (Auto) 0.1 Abs Immat Gran (auto) 0.02 Absolute Neuts (auto) 7.0 H Absolute Nucleated RBC 0.000 Nucleated RBC % 0.0 PT 13.3 INR 1.0 APTT 29.5 Sodium 140 Potassium 4.2 Chloride 102 Carbon Dioxide 26 Anion Gap 12 BUN 8 Creatinine 0.86 Estim Creat Clear Calc 98 Estimated GFR > 60 Glucose 104 Lactic Acid Calcium 9.8 Iron TIBC % Saturation Total Bilirubin 0.9 AST 23 ALT 31 Alkaline Phosphatase 92 Troponin I < 0.012 C-Reactive Protein 1.5 H Total Protein 8.0 Albumin 4.9 POC Urine HCG, Qual Negative Influenza A (RT-PCR) Negative Influenza B (RT-PCR) Negative RSV (RT-PCR) Negative SARS-CoV-2 RNA (RT-PCR) Negative 11/21/24 11/22/24 23:48 04:37 WBC 7.8 RBC 4.58 Hgb 13.2 Hct 40.6 MCV 88.6 MCH 28.8 MCHC 32.5 RDW 13.0 Plt Count 286 MPV 10.8 H Immature Gran % (Auto) 0.3 Neut % (Auto) 91.3 H Lymph % (Auto) 7.4 L [place] % (Auto) 0.9 L Eos % (Auto) 0.0 Baso % (Auto) 0.1 L Lymph # (Auto) 0.58 L [place] # (Auto) 0.1 Eos # (Auto) 0.0 Baso # (Auto) 0.0 Abs Immat Gran (auto) 0.02 Absolute Neuts (auto) 7.1 H Absolute Nucleated RBC 0.000 Nucleated RBC % 0.0 PT INR APTT Sodium 139 Potassium 4.3 Chloride 104 Carbon Dioxide 22 Anion Gap 13 H BUN 11 Creatinine 0.74 Estim Creat Clear Calc 119 Estimated GFR > 60 Glucose 170 H Lactic Acid 1.2 Calcium 9.6 Iron 52 TIBC 392 % Saturation 13 L Total Bilirubin AST ALT Alkaline Phosphatase Troponin I C-Reactive Protein Total Protein Albumin POC Urine HCG, Qual Influenza A (RT-PCR) Influenza B (RT-PCR) RSV (RT-PCR) SARS-CoV-2 RNA (RT-PCR) Quality VTE Prophylaxis VTE prophylaxis: pharmacologic ordered
[2024-11-22] MEDS: IPRATROPIUM 0.5 MG/ALBUTEROL SULFATE 2.5 MG AMPUL.NEB 3 ML INHALATION ×2 (13:17→20:39)
[2024-11-23] VITALS (19 sets, daily range): BP systolic 133–145; BP diastolic 68–85; PULSE 69–110; RESP 16–20; TEMP 36.2–37.4; O2SAT 91–97
[2024-11-23] MEDS: methylPREDNISolone SOD SUCC 125 MG VIAL 60 MG IV PUSH ×3 (00:06→17:05)
[2024-11-23] MEDS: IPRATROPIUM 0.5 MG/ALBUTEROL SULFATE 2.5 MG AMPUL.NEB 3 ML INHALATION ×4 (01:29→21:18)
[2024-11-23] MEDS: ENOXAPARIN 40 MG/0.4 ML SYRINGE SUB-Q ×2 (09:02→20:19)
[2024-11-23] MEDS: guaiFENesin 12 HR 600 MG TABCR 1200 MG PO ×2 (09:02→20:19)
--- NOTE | 2024-11-23 09:48 | PM.PNPUL ---
Progress Note: A&P Assessment and Plan (1) Shortness of breath: Code(s): R06.02 - Shortness of breath Status: Acute (2) Cylindrical bronchiectasis: Code(s): J47.9 - Bronchiectasis, uncomplicated Status: Acute (3) Recurrent bronchospasm: Code(s): J98.09 - Other diseases of bronchus, not elsewhere classified Status: Acute (4) Acute asthmatic bronchitis: Code(s): J45.909 - Unspecified asthma, uncomplicated Status: Acute Assessment and Plan: This 34-year-old female with a history of morbid obesity presented with recurrent episodes of shortness of breath and wheezing, which typically respond to bursts of oral steroids since last August following a viral infection. Her clinical history, combined with diagnostic studies, suggests a hyperreactive airway disease, most likely asthma, given the recurrent nature of her symptoms, history of nasal allergies, and elevated eosinophil levels. The mild cylindrical bronchiectasis observed on chest CT, along with elevated eosinophils, raises the possibility of other bronchospastic diseases such as allergic bronchopulmonary aspergillosis (ABPA). Patient has been treated with IV steroids nebulized short-acting bronchodilators and also antibiotics. Her respiratory status has significantly improved over the last 24 hours. Physical exam she continues to have mild expiratory wheezing. Plan: Have discontinued ceftriaxone. Decreased IV steroid dose. Continue with nebulized short-acting bronchodilators. Anticipate discharge home in a.m. continue with DVT prophylaxis. Ambulate in room. Subjective Date/time seen: 11/23/24 09:48 Interval history: Patient doing better. She has less shortness of breath when ambulating in room. Less coughing. Continues to have a mild wheezing. No other respiratory symptoms. Review of Systems Review of Systems: All systems reviewed & are unremarkable except as noted in HPI and below (HPI and below) Exam Narrative: GENERAL APPEARANCE: Well developed, well nourished, alert and cooperative, obese and appears to be in no acute distress while sitting up in bed and breathing room air SKIN: Inspection of the skin reveals no rashes, ulcerations or petechiae. HEENT: Sclerae anicteric and conjunctivae pink and moist. Extraocular movements were intact and pupils were equal, round, and reactive to light. The oral mucosa, hard and soft palate, tongue and posterior pharynx were normal. NECK: Supple. There was no thyroid enlargement, and no tenderness, or masses were felt. CHEST: Normal AP diameter and normal contour without any kyphoscoliosis. LUNGS: Mild expiratory wheezing bilaterally CARDIAC: There was a regular rate and rhythm without any murmurs, gallops, rubs. ABDOMEN: Soft and nontender with normal bowel sounds. There was no organomegaly. LYMPH NODES: No lymphadenopathy was appreciated in the neck. EXTREMITIES: No cyanosis, clubbing or edema. NEUROLOGIC: Alert and oriented x 3. Normal affect. Objective Data Vital Signs Vital Signs: Vital Signs - 24 hr 11/22/24 12:00 11/22/24 13:18 11/22/24 13:20 Temperature Pulse Rate 89 106 H 107 H Respiratory Rate 24 H 20 Blood Pressure Pulse Oximetry 91 Oxygen Delivery Room Air Fraction of Inspired Oxygen 11/22/24 13:29 11/22/24 14:49 11/22/24 16:00 Temperature 36.6 C Pulse Rate 115 H 106 H 123 H Respiratory Rate 20 26 H Blood Pressure 141/81 H Pulse Oximetry 89 L Oxygen Delivery Fraction of Inspired Oxygen 11/22/24 17:36 11/22/24 20:01 11/22/24 20:43 Temperature Pulse Rate 102 H 106 H Respiratory Rate 22 H 20 Blood Pressure Pulse Oximetry 95 Oxygen Delivery Fraction of Inspired Oxygen 11/22/24 20:53 11/22/24 21:15 11/22/24 21:29 Temperature 36.8 C Pulse Rate 106 H 107 H 107 H Respiratory Rate 20 20 20 Blood Pressure 140/83 Pulse Oximetry 91 91 Oxygen Delivery Room Air Fraction of Inspired Oxygen 11/23/24 00:04 11/23/24 01:29 11/23/24 01:40 Temperature Pulse Rate 106 H 106 H 106 H Respiratory Rate 20 20 Blood Pressure Pulse Oximetry Oxygen Delivery Fraction of Inspired Oxygen 11/23/24 04:00 11/23/24 06:00 11/23/24 08:07 Temperature 36.2 C L Pulse Rate 69 88 100 Respiratory Rate 20 20 Blood Pressure 133/80 Pulse Oximetry 95 Oxygen Delivery Fraction of Inspired Oxygen 11/23/24 08:19 Temperature Pulse Rate 110 H Respiratory Rate 20 Blood Pressure Pulse Oximetry Oxygen Delivery Fraction of Inspired Oxygen Intake/Output Intake/Output: Intake & Output 11/20/24 11/21/24 11/22/24 11/23/24 23:59 23:59 23:59 23:59 Intake Total 2710 1236 Balance 2710 1236 Meds/Results Medications: Active Medications Generic Name Dose Route Start Last Admin Trade Name Chenchoq PRN Reason Stop Dose Admin Acetaminophen 650 mg 11/22/24 08:10 11/22/24 08:24 Acetaminophen 325 Mg Tablet PO 650 mg Q6H PRN Administration Mild Pain (1-3) or Fever Albuterol/Ipratropium 3 ml 11/22/24 02:00 11/23/24 08:07 Ipratropium 0.5 Mg/Albuterol Sulfate 2.5 Mg Ampul.Neb 3 Ml INHALATION 3 ml Q6HRT JUHI Administration Enoxaparin Sodium 40 mg 11/22/24 21:00 11/23/24 09:02 Enoxaparin 40 Mg/0.4 Ml Syringe SUB-Q 40 mg Q12HR JUHI Administration Guaifenesin 1,200 mg 11/22/24 09:00 11/23/24 09:02 Guaifenesin 12 Hr 600 Mg Tabcr PO 1,200 mg Q12HR JUHI Administration Ceftriaxone Sodium 1 gm in 50 mls @ 100 mls/hr 11/22/24 22:00 11/22/24 21:45 Rocephin 1 Gm/Ns 50 Ml IVPB Infused Q24H [facility] Infusion Azithromycin 500 mg in 250 mls @ 250 mls/hr 11/22/24 23:00 11/22/24 23:06 Zithromax IVPB Infused Q24H [facility] Infusion Methylprednisolone Sodium Succinate 60 mg 11/22/24 06:00 11/23/24 06:23 Methylprednisolone Sod Succ 125 Mg Vial IV PUSH 60 mg Q6HR JUHI Administration Radiology Results: ITS Impressions Chest X-Ray 11/21/24 17:12 IMPRESSION: No focal infiltrate or effusion. Chest CTA 11/21/24 21:19 IMPRESSION: No pulmonary embolus. No thoracic aortic dissection. Findings suggesting prior granulomatous disease. Cylindrical bronchiectasis. Otherwise stable CTA of the chest dating back to 10/18/2022. Labs Labs: Laboratory Results - last 24 hr 11/22/24 04:37 Iron 52 TIBC 392 % Saturation 13 L Ferritin 26.40
--- NOTE | 2024-11-23 11:06 | PM.IMPN ---
Progress Note: A&P Assessment and Plan (1) Recurrent bronchospasm: Code(s): J98.09 - Other diseases of bronchus, not elsewhere classified Status: Acute (2) Cylindrical bronchiectasis: Code(s): J47.9 - Bronchiectasis, uncomplicated Status: Acute Plan Recurrent bronchospasm continue bronchodilators Pulmonology evaluated for ABPA Aspergillus fumigatus IgG and IgE pending Pulmonology following Bronchiectasis Continue antibiotics, mucinex and chest physiotherapy Pulm following DVT prophylaxis on Lovenox monitor one more day Subjective Date/time seen: 11/23/24 11:06 Interval history: Patient comfortable at bedside pulmonology noted to be monitored one more day Review of Systems Review of Systems: 12 systems were reviewed and are negative except for as per HPI. Exam Narrative: General: Alert and in no acute distress HEENT: Normocephalic, atraumatic. PERRL, EOMI. Sclera anicteric. Conjunctiva mildly injected. Moist mucous membranes. Neck: Supple. No stridor. Respiratory: Respirations are nonlabored and she is speaking full sentences. Lung sounds are a bit coarse with diffuse wheezing. Cardiovascular: Regular rate and rhythm with S1-S2. Tachycardic with ambulation. Gastrointestinal: Abdomen is soft, nontender, and nondistended with positive bowel sounds. Skin: Warm and dry. No rash or lesions on limited exam. Extremities: No cyanosis, clubbing, or significant edema. Radial and pedal pulses intact. No palpable knots or cords. Neurological: Alert. Cranial nerves 2-12 are grossly intact. No gross focal deficits to casual conversation. Psychiatric: Pleasant and cooperative with normal mood and affect. Judgment and insight intact. Objective Data Vital Signs Vital Signs: Vital Signs - 24 hr 11/22/24 12:00 11/22/24 13:18 11/22/24 13:20 Temperature Pulse Rate 89 106 H 107 H Respiratory Rate 24 H 20 Blood Pressure Pulse Oximetry 91 Oxygen Delivery Room Air Fraction of Inspired Oxygen 11/22/24 13:29 11/22/24 14:49 11/22/24 16:00 Temperature 97.9 F Pulse Rate 115 H 106 H 123 H Respiratory Rate 20 26 H Blood Pressure 141/81 H Pulse Oximetry 89 L Oxygen Delivery Fraction of Inspired Oxygen 11/22/24 17:36 11/22/24 20:01 11/22/24 20:43 Temperature Pulse Rate 102 H 106 H Respiratory Rate 22 H 20 Blood Pressure Pulse Oximetry 95 Oxygen Delivery Fraction of Inspired Oxygen 11/22/24 20:53 11/22/24 21:15 11/22/24 21:29 Temperature 98.2 F Pulse Rate 106 H 107 H 107 H Respiratory Rate 20 20 20 Blood Pressure 140/83 Pulse Oximetry 91 91 Oxygen Delivery Room Air Fraction of Inspired Oxygen 21 11/23/24 00:04 11/23/24 01:29 11/23/24 01:40 Temperature Pulse Rate 106 H 106 H 106 H Respiratory Rate 20 20 Blood Pressure Pulse Oximetry Oxygen Delivery Fraction of Inspired Oxygen 11/23/24 04:00 11/23/24 06:00 11/23/24 08:03 Temperature 97.1 F L Pulse Rate 69 88 99 Respiratory Rate 20 Blood Pressure 133/80 Pulse Oximetry 95 Oxygen Delivery Fraction of Inspired Oxygen 11/23/24 08:07 11/23/24 08:19 11/23/24 09:02 Temperature Pulse Rate 100 110 H Respiratory Rate 20 20 20 Blood Pressure Pulse Oximetry 95 Oxygen Delivery Room Air Fraction of Inspired Oxygen Intake/Output Intake/Output: Intake & Output 11/20/24 11/21/24 11/22/24 11/23/24 23:59 23:59 23:59 23:59 Intake Total 2710 1236 Balance 2710 1236 Meds/Results Medications: Active Medications Generic Name Dose Route Start Last Admin Trade Name Freq PRN Reason Stop Dose Admin Acetaminophen 650 mg 11/22/24 08:10 11/22/24 08:24 Acetaminophen 325 Mg Tablet PO 650 mg Q6H PRN Administration Mild Pain (1-3) or Fever Albuterol/Ipratropium 3 ml 11/22/24 02:00 11/23/24 08:07 Ipratropium 0.5 Mg/Albuterol Sulfate 2.5 Mg Ampul.Neb 3 Ml INHALATION 3 ml Q6HRT JUHI Administration Enoxaparin Sodium 40 mg 11/22/24 21:00 11/23/24 09:02 Enoxaparin 40 Mg/0.4 Ml Syringe SUB-Q 40 mg Q12HR JUHI Administration Guaifenesin 1,200 mg 11/22/24 09:00 11/23/24 09:02 Guaifenesin 12 Hr 600 Mg Tabcr PO 1,200 mg Q12HR JUHI Administration Azithromycin 500 mg in 250 mls @ 250 mls/hr 11/22/24 23:00 11/22/24 23:06 Zithromax IVPB Infused Q24H [facility] Infusion Methylprednisolone Sodium Succinate 60 mg 11/23/24 18:00 Methylprednisolone Sod Succ 125 Mg Vial IV PUSH Q12H [facility] Radiology Results: ITS Impressions Chest X-Ray 11/21/24 17:12 IMPRESSION: No focal infiltrate or effusion. Chest CTA 11/21/24 21:19 IMPRESSION: No pulmonary embolus. No thoracic aortic dissection. Findings suggesting prior granulomatous disease. Cylindrical bronchiectasis. Otherwise stable CTA of the chest dating back to 10/18/2022. Labs Labs: Laboratory Results - last 24 hr 11/22/24 04:37 Iron 52 TIBC 392 % Saturation 13 L Ferritin 26.40 Quality VTE Prophylaxis VTE prophylaxis: pharmacologic ordered
[2024-11-23] MEDS: AZITHROMYCIN 500 MG/NS 250 ML 500 MG/250 ML BAG 250 MG IVPB (22:03)
[2024-11-24] VITALS (11 sets, daily range): BP systolic 124; BP diastolic 83; PULSE 65–104; RESP 16–20; TEMP 36.9; O2SAT 95–99
[2024-11-24 05:58] LABS: Basophils Percent Auto 0.1 % (0.2-1.2); Hematocrit 37.8 % (37.0-47.0); Hemoglobin 12.1 g/dL (12.0-15.0); Immature Granulocyte Absolute 0.06 K/mm3 (0.00-0.031); Immature Granulocyte Percent A 0.6 % (0-0.5); Lymphocytes Absolute Auto 1.39 K/mm3 (0.9-3.2); Lymphocytes Percent Auto 13.8 % (18.3-44.2); Mean Corpuscular Hemoglobin 29.1 pg (26-34); Mean Corpuscular Volume 90.9 fl (80-100); Mean Platelet Volume 10.2 fl (7.4-10.4); Monocytes Absolute Auto 0.4 K/mm3 (0.1-0.6); Monocytes Percent Auto 4.4 % (2.6-8.5); Neutrophils Absolute Auto 8.2 K/mm3 (1.3-6.7); Neutrophils Percent Auto 81.1 % (45.5-73.1); Platelet Count Result 223 k/mm3 (150-375); Red Blood Count 4.16 M/mm3 (4.2-5.4); Red Cell Distribution Width 13.5 % (11.5-14.5); White Blood Count 10.1 K/mm3 (4.5-10.0)
[2024-11-24 06:17] LABS: Alanine Aminotransferase 22 U/L (6-35); Albumin Level 3.8 g/dL (3.5-5.1); Alkaline Phosphatase 58 U/L (38-126); Anion Gap 9 mmol/L (4-12); Aspartate Amino Transferase 18 U/L (14-36); Bilirubin,Total 0.3 mg/dL (0.2-1.3); Blood Urea Nitrogen 17 mg/dL (7-17); Calcium 8.8 mg/dL (8.4-10.2); Carbon Dioxide 22 mmol/L (22-30); Chloride 108 mmol/L (98-107); Estimated CRCL calculation 144 ml/min; Estimated Glomerular Filt Rate > 60; Glucose 108 mg/dL (65-110); Magnesium 2.1 mg/dL (1.6-2.3); Potassium 4.4 mmol/L (3.4-5.0); Sodium 139 mmol/L (137-145)
[2024-11-24] MEDS: methylPREDNISolone SOD SUCC 125 MG VIAL 60 MG IV PUSH (06:20)
[2024-11-24] MEDS: IPRATROPIUM 0.5 MG/ALBUTEROL SULFATE 2.5 MG AMPUL.NEB 3 ML INHALATION ×2 (08:32→14:32)
--- NOTE | 2024-11-24 10:24 | P.PNPL_ITS ---
Progress Note: A&P Assessment and Plan (1) Shortness of breath: Code(s): R06.02 - Shortness of breath Status: Acute (2) Cylindrical bronchiectasis: Code(s): J47.9 - Bronchiectasis, uncomplicated Status: Acute (3) Recurrent bronchospasm: Code(s): J98.09 - Other diseases of bronchus, not elsewhere classified Status: Acute (4) Acute asthmatic bronchitis: Code(s): J45.909 - Unspecified asthma, uncomplicated Status: Acute Assessment and Plan: This 34-year-old female with a history of morbid obesity presented with recurrent episodes of shortness of breath and wheezing, which typically respond to bursts of oral steroids since last August following a viral infection. Her clinical history, combined with diagnostic studies, suggests a hyperreactive airway disease, most likely asthma, given the recurrent nature of her symptoms, history of nasal allergies, and elevated eosinophil levels. The mild cylindrical bronchiectasis observed on chest CT, along with elevated eosinophils, raises the possibility of other bronchospastic diseases such as allergic bronchopulmonary aspergillosis (ABPA). Patient has been treated with IV steroids nebulized short-acting bronchodilators and also antibiotics. Her respiratory status has significantly improved over the last 24 hours. Physical exam showed clear lungs today. The patient is approved for discharge with the following medication regimen: Prednisone: Start with 40 mg daily for 4 days, then reduce to 30 mg daily for the next 4 days, followed by 20 mg daily for 4 days, and finally 10 mg daily for the last 4 days. Symbicort: Use the 160/4.5 inhaler, taking 2 puffs twice daily. Albuterol: Use nebulized albuterol three times a day as needed for shortness of breath or wheezing. A nebulizer needs to be prescribed for home use. Also albuterol rescue inhaler for p.r.n. use. There is no need to continue antibiotics at this time. The patient has been given contact information for the pulmonary clinic to schedule a follow-up appointment within the next 3 weeks. I will conclude my involvement at this point; please feel free to reach out with any questions. Subjective Date/time seen: 11/24/24 10:24 Interval history: Patient doing better. No shortness of breath. Able to take deep breaths. Eager to go home Review of Systems Review of Systems: All systems reviewed & are unremarkable except as noted in HPI and below (HPI and below) Exam Narrative: GENERAL APPEARANCE: Well developed, well nourished, alert and cooperative, obese and appears to be in no acute distress while sitting up in bed and breathing room air SKIN: Inspection of the skin reveals no rashes, ulcerations or petechiae. HEENT: Sclerae anicteric and conjunctivae pink and moist. Extraocular movements were intact and pupils were equal, round, and reactive to light. The oral mucosa, hard and soft palate, tongue and posterior pharynx were normal. NECK: Supple. There was no thyroid enlargement, and no tenderness, or masses were felt. CHEST: Normal AP diameter and normal contour without any kyphoscoliosis. LUNGS: Essentially clear lungs today CARDIAC: There was a regular rate and rhythm without any murmurs, gallops, rubs. ABDOMEN: Soft and nontender with normal bowel sounds. There was no organomegaly. LYMPH NODES: No lymphadenopathy was appreciated in the neck. EXTREMITIES: No cyanosis, clubbing or edema. NEUROLOGIC: Alert and oriented x 3. Normal affect. Objective Data Vital Signs Vital Signs: Vital Signs - 24 hr 11/23/24 12:01 11/23/24 14:00 11/23/24 15:26 Temperature 37.4 C Pulse Rate 99 98 82 Respiratory Rate 18 18 Blood Pressure 145/68 H Pulse Oximetry 97 Oxygen Delivery Fraction of Inspired Oxygen 11/23/24 15:34 11/23/24 16:04 11/23/24 20:00 Temperature Pulse Rate 88 100 109 H Respiratory Rate 20 Blood Pressure Pulse Oximetry Oxygen Delivery Fraction of Inspired Oxygen 11/23/24 20:20 11/23/24 20:31 11/23/24 21:18 Temperature 37.3 C Pulse Rate 98 98 86 Respiratory Rate 16 16 18 Blood Pressure 133/85 Pulse Oximetry 91 91 Oxygen Delivery Room Air Fraction of Inspired Oxygen 21 11/23/24 21:31 11/24/24 00:04 11/24/24 01:57 Temperature Pulse Rate 86 90 96 Respiratory Rate 18 18 Blood Pressure Pulse Oximetry Oxygen Delivery Fraction of Inspired Oxygen 11/24/24 02:08 11/24/24 04:00 11/24/24 05:50 Temperature 36.9 C Pulse Rate 96 75 86 Respiratory Rate 18 16 Blood Pressure 124/83 Pulse Oximetry 95 Oxygen Delivery Fraction of Inspired Oxygen 11/24/24 08:32 11/24/24 08:32 11/24/24 08:39 Temperature Pulse Rate 95 99 Respiratory Rate 16 16 Blood Pressure Pulse Oximetry 95 Oxygen Delivery Room Air Fraction of Inspired Oxygen 21 Intake/Output Intake/Output: Intake & Output 11/21/24 11/22/24 11/23/24 11/24/24 23:59 23:59 23:59 23:59 Intake Total 2710 3316 1000 Balance 2710 3316 1000 Meds/Results Medications: Active Medications Generic Name Dose Route Start Last Admin Trade Name Freq PRN Reason Stop Dose Admin Acetaminophen 650 mg 11/22/24 08:10 11/22/24 08:24 Acetaminophen 325 Mg Tablet PO 650 mg Q6H PRN Administration Mild Pain (1-3) or Fever Albuterol/Ipratropium 3 ml 11/22/24 02:00 11/24/24 08:32 Ipratropium 0.5 Mg/Albuterol Sulfate 2.5 Mg Ampul.Neb 3 Ml INHALATION 3 ml Q6HRT JUHI Administration Enoxaparin Sodium 40 mg 11/22/24 21:00 11/23/24 20:19 Enoxaparin 40 Mg/0.4 Ml Syringe SUB-Q 40 mg Q12HR JUHI Administration Guaifenesin 1,200 mg 11/22/24 09:00 11/23/24 20:19 Guaifenesin 12 Hr 600 Mg Tabcr PO 1,200 mg Q12HR JUHI Administration Azithromycin 500 mg in 250 mls @ 250 mls/hr 11/22/24 23:00 11/23/24 23:03 Zithromax IVPB Infused Q24H [facility] Infusion Methylprednisolone Sodium Succinate 60 mg 11/23/24 18:00 11/24/24 06:20 Methylprednisolone Sod Succ 125 Mg Vial IV PUSH 60 mg Q12H JUHI Administration Radiology Results: ITS Impressions Chest X-Ray 11/21/24 17:12 IMPRESSION: No focal infiltrate or effusion. Chest CTA 11/21/24 21:19 IMPRESSION: No pulmonary embolus. No thoracic aortic dissection. Findings suggesting prior granulomatous disease. Cylindrical bronchiectasis. Otherwise stable CTA of the chest dating back to 10/18/2022. Labs Labs: Laboratory Results - last 24 hr 11/24/24 05:41 WBC 10.1 H RBC 4.16 L Hgb 12.1 Hct 37.8 MCV 90.9 MCH 29.1 MCHC 32.0 RDW 13.5 Plt Count 223 MPV 10.2 Immature Gran % (Auto) 0.6 H Neut % (Auto) 81.1 H Lymph % (Auto) 13.8 L [place] % (Auto) 4.4 Eos % (Auto) 0.0 Baso % (Auto) 0.1 L Lymph # (Auto) 1.39 [place] # (Auto) 0.4 Eos # (Auto) 0.0 Baso # (Auto) 0.0 Abs Immat Gran (auto) 0.06 H Absolute Neuts (auto) 8.2 H Absolute Nucleated RBC 0.000 Nucleated RBC % 0.0 Sodium 139 Potassium 4.4 Chloride 108 H Carbon Dioxide 22 Anion Gap 9 BUN 17 Creatinine 0.60 L Estim Creat Clear Calc 144 Estimated GFR > 60 Glucose 108 Calcium 8.8 Magnesium 2.1 Total Bilirubin 0.3 AST 18 ALT 22 Alkaline Phosphatase 58 Total Protein 7.0 Albumin 3.8
[2024-11-24] MEDS: ENOXAPARIN 40 MG/0.4 ML SYRINGE SUB-Q (10:46)
[2024-11-24] MEDS: guaiFENesin 12 HR 600 MG TABCR 1200 MG PO (10:46)
--- NOTE | 2024-11-24 11:35 | PM.DS ---
DS: Admitting Diagnosis Discharge Date 11/24/2024 Admitting Diagnosis Bronchospasm DS: Discharge Diagnosis Discharge Diagnosis (1) Recurrent bronchospasm: Code(s): J98.09 - Other diseases of bronchus, not elsewhere classified Status: Acute (2) Cylindrical bronchiectasis: Code(s): J47.9 - Bronchiectasis, uncomplicated Status: Acute Plan Recurrent bronchospasm continue bronchodilators Pulmonology evaluated for ABPA Aspergillus fumigatus IgG and IgE pending Pulmonology following Bronchiectasis Continue antibiotics, mucinex and chest physiotherapy Pulm following DVT prophylaxis on Lovenox monitor one more day DS: Summary Hospital Course Reason for hospitalization: SOB Hospital Course: 34 years old female was admitted for shortness of breath. Patient was found bronchospasm. Patient was given nebulizer treatment antibiotic. Patient a code completely of treatment. Today patient is feeling better discharged home stable condition. Follow-up with primary care and Pulmonary patient schedule. Status at Discharge Cognitive/behavioral status at discharge: Stable Time Spent with Patient Time attestation: 30 minutes Total time spent providing and/or coordinating discharge services: Exam Narrative: General: Alert and in no acute distress HEENT: Normocephalic, atraumatic. PERRL, EOMI. Sclera anicteric. Conjunctiva mildly injected. Moist mucous membranes. Neck: Supple. No stridor. Respiratory: Respirations are nonlabored and she is speaking full sentences. Lung sounds are a bit coarse with diffuse wheezing. Cardiovascular: Regular rate and rhythm with S1-S2. Tachycardic with ambulation. Gastrointestinal: Abdomen is soft, nontender, and nondistended with positive bowel sounds. Skin: Warm and dry. No rash or lesions on limited exam. Extremities: No cyanosis, clubbing, or significant edema. Radial and pedal pulses intact. No palpable knots or cords. Neurological: Alert. Cranial nerves 2-12 are grossly intact. No gross focal deficits to casual conversation. Psychiatric: Pleasant and cooperative with normal mood and affect. Judgment and insight intact. DS: Data Data Completed and Pending Labs on day of discharge: Labs from last 24 hours 11/24/24 05:41 WBC 10.1 H RBC 4.16 L Hgb 12.1 Hct 37.8 MCV 90.9 MCH 29.1 MCHC 32.0 RDW 13.5 Plt Count 223 MPV 10.2 Immature Gran % (Auto) 0.6 H Neut % (Auto) 81.1 H Lymph % (Auto) 13.8 L [place] % (Auto) 4.4 Eos % (Auto) 0.0 Baso % (Auto) 0.1 L Lymph # (Auto) 1.39 [place] # (Auto) 0.4 Eos # (Auto) 0.0 Baso # (Auto) 0.0 Abs Immat Gran (auto) 0.06 H Absolute Neuts (auto) 8.2 H Absolute Nucleated RBC 0.000 Nucleated RBC % 0.0 Sodium 139 Potassium 4.4 Chloride 108 H Carbon Dioxide 22 Anion Gap 9 BUN 17 Creatinine 0.60 L Estim Creat Clear Calc 144 Estimated GFR > 60 Glucose 108 Calcium 8.8 Magnesium 2.1 Total Bilirubin 0.3 AST 18 ALT 22 Alkaline Phosphatase 58 Total Protein 7.0 Albumin 3.8 Preliminary micro results at discharge 11/22/24 09:13 Sputum Culture - Preliminary Sputum 11/21/24 23:48 Blood Culture - Preliminary Blood 11/21/24 23:48 Blood Culture - Preliminary Blood Discharge Plan Discharge Attending physician on discharge: Javi Andujar Consulting providers: Rashawn Portillo Discharging Clinician: Javi Andujar Activity: as tolerated Diet: as tolerated Patient Language: Indonesian Follow-up/Referrals: PHYSICIAN,[facility] [Primary Care Provider] - Rashawn Portillo MD [Physician] - Gino Mancuso DO [Physician] - Discharge Medications: New azithromycin [Zithromax Z-Kit] 250 mg tablet See Rx Instructions .ROUTE .COMPLEX Qty: 6 0RF Rx Instructions: For 250 mg dose pack: take 500 mg today (day 1), then 250 mg for 4 days (days 2-5) Continued albuterol 90 mcg/actuation aerosol 90 mcg inhalation Q4H PRN (Reason: shortness of breath or wheezing) budesonide 0.5 mg/2 mL suspension for nebulization 0.5 mg inhalation Q12H Rx Instructions: PATIENT STATES SHE IS NOT TAKING PRESENTLY, MAKES HER FEEL BAD Date of admission: 11/22/24 07:34 Primary Care Provider: PHYSICIAN,[facility] Admitting Provider: Ilir Montalvo Attending physician on admission: Ilir Montalvo Condition: Serious
[2024-11-26 14:38] LABS: Aspergillus Fumigatus K/UL <0.10 kU/L; Conventional Class 0
[2024-11-29 06:08] LABS: Aspergillus fumigatus (m3) IgG 16.9 mcg/mL (<2.0)
== END 2024-11-24 15:44 | disposition home or self-care (01) | DRG 140 ==
LOC: ANHED 11-22 01:19 → ANH2MED 11-22 02:52
PROVIDERS: Internal Medicine Pulmonary Disease; Physician Assistant; Admitting Provider Internal Medicine; Emergency Provider Registered Nurse; Visit Provider Internal Medicine
DX: J47.9 Bronchiectasis, uncomplicated (principal); J98.01 Acute bronchospasm; E66.01 Morbid (severe) obesity due to excess calories; F17.290 Nicotine dependence, other tobacco product, uncomplicated; F31.9 Bipolar disorder, unspecified; Z68.41 Body mass index [BMI] 40.0-44.9, adult
CPT/HCPCS: 36415; 71046; 71275; 80048; 80053; 81025; 82728; 83540; 83550; 83605; 83735; 84484; 85025; 85610; 85730; 86001; 86003; 86140; 87040; 87070; 87205; 87637; 93005; 94640; 94667; 94668; 94669; 96361; 96365; 96368; 96375; 99285; A9270; G0378; J0456; J0696; J1650; J2919; J7030; Q9967